=== PATIENT | male | born 1990 | race Caucasian/White ===

== ENCOUNTER 2018-12-30 05:41 | Inpatient (IN) | payer OTHER ==
[2018-12-30] MEDS ORDERED: Sodium Chloride 0.9% 0 ML ONE (06:32)
[2018-12-30] MEDS ORDERED: Thrombin 5000 UNITS/5 ML VIAL ONE (06:36)
[2018-12-30] MEDS ORDERED: Sodium Chloride 0.9% 10 ML ONE (06:36)
[2018-12-30] MEDS ORDERED: Fentanyl 100 MCG/2 ML VIAL ONE ×4 (06:54→09:19)
[2018-12-30 07:03] LABS: #Eosinphils 0.1 thou/uL (0.0-0.7); #Lymphocytes 2.4 thou/uL (1.20-3.40); #Monocytes 0.6 thou/uL (0.11-0.59); #Neutrophils 2.2 thou/uL (1.40-6.50); %Basophils 0.4 % (0.0-1.0); %Eosinophils 1.2 % (0.0-10.0); %Lymphocytes 45.4 % (21.0-51.0); %Monocytes 10.8 % (0.0-10.0); %Neutrophils 42.2 % (42.0-75.0); Hemoglobin 14.5 g/dL (14.0-18.0); Mean Corpuscular HGB CONC 34.5 g/dL (32.0-36.0); Mean Corpuscular Volume 89.8 fL (78.0-98.0); Mean Platelet Volume 8.2 fL (7.4-10.4); Platelet Count 196 thou/uL (130-400); RBC Distribution Width 11.9 % (11.5-14.5); White Blood Cell (WBC) Count 5.3 thou/uL (4.8-10.8)
[2018-12-30 07:22] LABS: Anion Gap 12 mmol/L (10-20); BUN (Urea Nitrogen) 13 mg/dL (8.9-20.6); Calc. Creatinine Clearance 0 mL/min (70-130); Calcium 9.1 mg/dL (7.8-10.44); Carbon Dioxide 23 mmol/L (22-29); Chloride 107 mmol/L (98-107); Estimated GFR-MDRD Greater than 90; Glucose 87 mg/dL (70-105); Sodium 138 mmol/L (136-145)
[2018-12-30] MEDS ORDERED: Ondansetron PF 4 MG/2 ML Vial IM PRN (09:02)
[2018-12-30] MEDS ORDERED: traMADol HCl 50 MG TAB PO PRN (09:02)
[2018-12-30] MEDS ORDERED: Promethazine HCl 12.5 MG SUPP PR PRN (09:02)
[2018-12-30] MEDS ORDERED: Morphine 4 MG/ML VIAL SLOW IVP PRN (09:02)
[2018-12-30] MEDS ORDERED: diphenhydrAMINE 25 MG CAP PO PRN (09:02)
[2018-12-30] MEDS ORDERED: Mag-Al 1200 mg/1200 mg/30 ML UDCUP PO PRN (09:02)
[2018-12-30] MEDS ORDERED: HYDROcodone/Acetaminophen 10/325 mg Tablet PO PRN (09:02)
[2018-12-30] MEDS ORDERED: Milk Of Magnesia 30 ML UDCUP PO PRN (09:02)
[2018-12-30] MEDS ORDERED: Promethazine 25 MG TAB PO PRN (09:02)
[2018-12-30] MEDS ORDERED: Promethazine HCl 25 MG/ML VIAL IM PRN ×2 (09:02→09:24)
[2018-12-30] MEDS ORDERED: diphenhydrAMINE 50 MG/ML VIAL IVP PRN (09:02)
[2018-12-30] MEDS ORDERED: Morphine 2 MG/ML SYRINGE SLOW IVP PRN (09:03)
--- NOTE | 2018-12-30 09:10 | OP ---
DATE OF PROCEDURE: 12/30/2018 SAND WORKER: Aftab Dubon PA-C PROCEDURES PERFORMED: Left L5-S1 laminectomy, facetectomy, foraminotomy, interbody arthrodesis, intervertebral biomechanical device, local morselized autograft, demineralized bone matrix, posterolateral arthrodesis, pedicle screw instrumentation, L5-S1. DESCRIPTION OF PROCEDURE: The patient was brought to the operating room and intubated. He was rolled in the prone position on gel-filled chest rolls. An incision was made exposing L5 and S1 bilaterally and the level was confirmed by x-ray. We performed a left-sided L5-S1 laminectomy, facetectomy, foraminotomy, and diskectomy, completely decompressing left S1 nerve root. The disk itself was incised and debrided and completely removed. The bony endplates were decorticated for the purpose of arthrodesis and appropriate-sized intervertebral biomechanical PEEK device was brought into the field. It was filled with demineralized bone matrix, local morselized autograft, and tapped in place securely at L5-S1. Next, pedicle screws were placed at left L5 and left S1 using lateral fluoroscopic guidance and the positioning was confirmed by x-ray. The nidia was secured between the screws, connected by nuts, which were final tightened. The wound was then extensively irrigated and MAC hemostasis was secured. A combination of demineralized bone matrix and local morselized autograft was laid over the right lamina and posterolateral surfaces for the purpose of arthrodesis. Vancomycin powder was applied and the wound was then closed in anatomic layers. Job ID: [id number]
[2018-12-30] MEDS ORDERED: Ketorolac Tromethamine 30 MG/ML VIAL IVP PRN (09:24)
[2018-12-30] MEDS ORDERED: Promethazine HCl 25 MG/ML VIAL SLOW IVP PRN (09:24)
[2018-12-30] MEDS ORDERED: Ondansetron HCl/PF 4 MG/2 ML Vial IVP PRN (09:24)
[2018-12-30] MEDS: Sodium Chloride 0.9% 1,000 ML IV SCH ×2 (10:00→21:33)
[2018-12-30] MEDS: HYDROcodone/Acetaminophen 10/325 mg Tablet PO PRN ×2 (12:06→20:06)
[2018-12-30] MEDS ORDERED: Ondansetron PF 4 MG/2 ML Vial ONE (14:49)
[2018-12-30] MEDS ORDERED: Glycopyrrolate 0.2 MG/ML 5 ML SYRINGE ONE (14:49)
[2018-12-30] MEDS ORDERED: Succinylcholine Chloride 20 MG/ML 10 ml SYRINGE FS ONE (14:49)
[2018-12-30] MEDS ORDERED: PROPOFOL 200 MG/20 ML VIAL ONE (14:49)
[2018-12-30] MEDS ORDERED: Ketorolac Tromethamine 30 MG/ML VIAL ONE (14:49)
[2018-12-30] MEDS ORDERED: Lidocaine 1% PF 5 ML VIAL ONE (14:49)
[2018-12-30] MEDS ORDERED: Rocuronium Bromide 10 MG/ML (10ML VIAL) ONE (14:49)
[2018-12-30] MEDS: CEFAZOLIN 2 GM in Premix Bag 1 BAG IVPB SCH ×2 (14:59→21:32)
--- NOTE | 2018-12-30 15:18 | EKG ---
Test Reason : PREOP Blood Pressure : / mmHG Vent. Rate : 047 BPM Atrial Rate : 047 BPM P-R Int : 198 ms QRS Dur : 108 ms QT Int : 428 ms P-R-T Axes : 000 021 013 degrees QTc Int : 378 ms Marked sinus bradycardia Abnormal ECG No previous ECGs available Confirmed by DR. Jo LEWIS ([id number]) on 12/30/2018 3:17:57 PM Referred By: WOODY Confirmed By:DR. Jo LEWIS
[2018-12-30] MEDS: traMADol HCl 50 MG TAB PO PRN (21:33)
[2018-12-31] MEDS: traMADol HCl 50 MG TAB PO PRN ×2 (05:15→11:03)
[2018-12-31] MEDS: HYDROcodone/Acetaminophen 10/325 mg Tablet PO PRN ×2 (05:16→15:03)
[2018-12-31] MEDS: tiZANidine HCl 4 MG TAB PO PRN ×2 (08:28→15:05)
[2018-12-31 12:09] VITALS: BP 128/81; TEMP 97.7
[2018-12-31] MEDS: Sodium Chloride 0.9% 1,000 ML IV SCH (14:32)
--- NOTE | 2019-01-01 03:36 | DIS ---
DATE OF ADMISSION: 12/30/2018 DATE OF DISCHARGE: 12/31/2018 HOSPITAL COURSE: Patient is a 28-year-old male, who was recently seen in our office for low back pain and left leg pain. He was found to have degenerative disk disease at L5-S1 with a left-sided disk protrusion. He underwent L5-S1 diskectomy and fusion on 12/30/2018. Following the surgery, he was transitioned to the Med/Surg floor, where his pain has been well controlled with p.o. medications, he is tolerating a regular diet, and he is voiding appropriately. He continues to have some left leg numbness and tingling in S1 pattern, but this is unchanged from prior to surgery. No new weakness or any other worrisome concerns. We will plan to dismiss the patient to home. I have discussed home care precautions. We will follow up with the patient in 2 weeks. Job ID: [id number]
== END 2018-12-31 15:41 | disposition home or self-care (01) | DRG 455 ==
LOC: SURG A 05:41 → SURG B 10:05
PROVIDERS: ADMIT Neurological Surgery; ATTEND Neurological Surgery
PROC: 0SG30AJ Fusion of Lumbosacral Joint with Interbody Fusion Device, Posterior Approach, Anterior Column, Open Approach (ICD-10-PCS; principal; 2018-12-30)
PROC: 0SG3071 Fusion of Lumbosacral Joint with Autologous Tissue Substitute, Posterior Approach, Posterior Column, Open Approach (ICD-10-PCS; 2018-12-30)
PROC: 0ST40ZZ Resection of Lumbosacral Disc, Open Approach (ICD-10-PCS; 2018-12-30)
DX: M47.27 Other spondylosis with radiculopathy, lumbosacral region (principal); M51.17 Intervertebral disc disorders with radiculopathy, lumbosacral region
CPT/HCPCS: 36415; 76000; 80048; 85025; 93005; 93010; J0690; J1885; J2001; J2405; J2704; J3010; J3370; J3490

== ENCOUNTER 2019-01-14 15:20 | Outpatient (CLI) | payer OTHER ==
--- NOTE | 2019-01-14 15:41 | RAD ---
XR Lumbar Spine 2 Or 3 View History: M [age] lumbar radiculopathy Comparison: None. Findings: Left unilateral posterior spinal fusion hardware with discectomy cage and laminectomy at L5 /S1. Surgical hardware appears normal. No acute osseous abnormality. Impression: Satisfactory postoperative appearance.
== END 2019-01-14 15:21 | disposition home or self-care (01) ==
LOC: TBSIIMAG 15:20
PROVIDERS: ATTEND Neurological Surgery
DX: M54.16 Radiculopathy, lumbar region (principal); Z98.1 Arthrodesis status
CPT/HCPCS: 72100